=== PATIENT | female | born 1995 | race Caucasian/White ===

== ENCOUNTER 2018-04-09 15:03 | Observation (INO) | payer MEDICAID ==
[~2018-04-09] VITALS: Ht 157.5 cm; Wt 61.2 kg
[2018-04-09] MEDS ORDERED: PNV1TABL76 PO (15:20)
[2018-04-09 16:00] LABS: CLARITY URINE CLEAR (CLEAR); COLOR URINE YELLOW (YELLOW); KETONES URINE NEGATIVE (NEGATIVE); LEUKOCYTE ESTERASE URINE TRACE (NEGATIVE); NITRITE URINE NEGATIVE (NEGATIVE); OCCULT BLOOD URINE NEGATIVE (NEGATIVE); PROTEIN URINE NEGATIVE (NEGATIVE); SPECIFIC GRAVITY URINE 1.012 (1.005-1.030); UROBILINOGEN URINE 0.2 E.U./dL (0.2-1.0)
[2018-04-09] MEDS ORDERED: LACTATED RINGERS 1,000 ML IV SCH (17:45)
[2018-04-09] MEDS ORDERED: CEFAZOLIN 1000MG PREMIX 50 ML IV NR (18:00)
== END 2018-04-09 18:25 | disposition home or self-care (01) ==
LOC: L&D 15:03
PROVIDERS: ADMIT Obstetrics & Gynecology; ATTEND Obstetrics & Gynecology
DX: O26.892 Other specified pregnancy related conditions, second trimester (principal); R31.9 Hematuria, unspecified; Z3A.23 23 weeks gestation of pregnancy
CPT/HCPCS: 81003; 96365; 99281; G0378; J0690; J7120; 96360